=== PATIENT | female | born 1990 | race Asian ===

== ENCOUNTER 2019-11-10 10:54 | Outpatient (CLI) | payer MEDICAID, SELFPAY | END 2019-11-10 21:48 | disposition home or self-care (01) | LOC: MLB 10:54 | PROVIDERS: ATTEND Obstetrics & Gynecology | DX: Z11.59 Encounter for screening for other viral diseases (principal) | CPT/HCPCS: U0003-CS ==

== ENCOUNTER 2020-08-05 10:46 | Emergency (ER) | payer MEDICAID, SELFPAY ==
[~2020-08-05] VITALS: Ht 162.6 cm; Wt 65.8 kg
[2020-08-05 10:50] VITALS: BP 145/69
--- NOTE | 2020-08-05 10:55 | NUR ---
PT AMBULATED TO BED 8, STEADY GAIT.
--- NOTE | 2020-08-05 11:05 | NUR ---
30 Y/F PRESENTS TO ED C C/O SOB S/P RECEIVING PFIZER COVID VACCINE YESTERDAY (1ST DOSE). PT ALSO C/O SINUS PAIN THAT STARTED YESTERDAY. PT REPORTS NASAL CONGESTION, SORE THROAT, HEADACHE 11/30, 3 HOURS S/P VACCINE. PT REPORTS BABY AT HOME HAS SIMILAR SYMPTOMS. PT REPORTS SHE IS , TOOK TYLENOL AT HOME WITH NO RELEIF. LUNGS CLEAR, RR EVEN AND UNALBORED. NO PMH NKDA
--- NOTE | 2020-08-05 11:40 | NUR ---
PT AMBULATED TO BATHROOM, STEADY GAIT.
--- NOTE | 2020-08-05 11:43 | NUR ---
PT REPORTING SOB, AND REQUESTING "SOMETHING TO MAKE HER BREATH EASIER". PT SATTING 100% ON RA. PT PLACED ON 3 LEAD ECG, PULSE OX AND 2L VIA NC FOR COMFORT.
--- NOTE | 2020-08-05 12:25 | NUR ---
DR. HOWARD AT BEDSIDE EVALUATING PT.
[2020-08-05 12:47] VITALS: BP 145/69
--- NOTE | 2020-08-05 12:47 | NUR ---
Patient discharged with v/s stable. Written and verbal after care instructions given and explained. Patient verbalized understanding. Ambulatory with steady gait. All questions addressed prior to discharge. Advised to follow up with PMD.
== END 2020-08-05 12:47 | disposition home or self-care (01) ==
LOC: MED 10:46
DX: J06.9 Acute upper respiratory infection, unspecified (principal)
CPT/HCPCS: 99281

== ENCOUNTER 2020-10-06 08:02 | Emergency (ER) | payer MEDICAID ==
[~2020-10-06] VITALS: Ht 157.5 cm; Wt 65.3 kg
[2020-10-06 08:12] VITALS: BP 117/69
--- NOTE | 2020-10-06 09:11 | NUR ---
30/F presents to ED with c/o facial swelling and itching. Patient states two days ago she had a "stressful situation at work" and states shortly after began feeling face swelling and itchiness radiating down to her neck. Patient denies any difficulty swallowing or shorntess of breath, speaking in clear full sentences. Patient states she took her covid vaccine on 09-22-20 and states "I haven't felt the same since." Face appears swollen bilaterally, no redness or rash noted, denies taking anything at home.
--- NOTE | 2020-10-06 09:36 | NUR ---
Dr. South is evaluating the patient at bedside.
[2020-10-06] MEDS ORDERED: predniSONE 20 MG TAB PO ONE (09:40)
[2020-10-06] MEDS ORDERED: PRED20TA5 PO (09:44)
[2020-10-06] MEDS ORDERED: EPIN1KIT31 IM (09:44)
[2020-10-06] MEDS ORDERED: DIPH25TA53 PO (09:44)
[2020-10-06 10:02] VITALS: BP 117/69
--- NOTE | 2020-10-06 10:03 | NUR ---
Patient discharged with v/s stable. Written and verbal after care instructions given and explained. Patient alert, oriented and verbalized understanding of instructions. Ambulatory with steady gait. All questions addressed prior to discharge. ID band removed. Patient advised to follow up with PMD. Rx of BENADRYL, EPIPEN AND DELTASONE given. Patient educated on indication of medication including possible reaction and side effects. Opportunity to ask questions provided and answered.
== END 2020-10-06 10:03 | disposition home or self-care (01) ==
LOC: MED 08:02
DX: T78.40XA Allergy, unspecified, initial encounter (principal); Z79.899 Other long term (current) drug therapy; X58.XXXA Exposure to other specified factors, initial encounter
CPT/HCPCS: 99283; J7512; Q0163

== ENCOUNTER 2022-05-29 13:52 | Inpatient (IN) | payer MEDICAID ==
[~2022-05-29] VITALS: Ht 157.5 cm; Wt 68.9 kg
[~2022-05-29 13:52] MED LIST: DIPH25TA53 PO; EPIN1KIT31 IM; PRED20TA5 PO
[2022-05-29 13:56] VITALS: BP 85/45
[2022-05-29] MEDS ORDERED: NACL 0.9% 1,000 ML IV ONE (14:00)
--- NOTE | 2022-05-29 14:13 | NUR ---
IV ESTABLISHED TO LEFT AC WITH 20G. BLOOD DRAWN AND SENT TO LAB. EKG DONE. ON GOWN AND MONITOR
[2022-05-29 14:33] LABS: BASOPHILS % (AUTO) 0.2 % (0.0-2.0); EOSINOPHILS # (AUTO) 0.5 K/uL (0-0.4); EOSINOPHILS % (AUTO) 2.9 % (0.0-4.0); HEMATOCRIT 42.3 % (36-48); HEMOGLOBIN 14.5 g/dL (12.0-16.0); LYMPHOCYTES # (AUTO) 2.6 K/uL (2.5-16.5); LYMPHOCYTES % (AUTO) 15.2 % (20.5-51.1); MEAN CORPUSCULAR HEMOGLOBIN 31 pg (27-31); MEAN CORPUSCULAR HGB CONC 34 g/dL (33-37); MEAN CORPUSCULAR VOLUME 89.7 fL (80-94); MONOCYTES # (AUTO) 1.3 K/uL (0.8-1.0); MONOCYTES % (AUTO) 7.5 % (1.7-9.3); NEUTROPHILS # (AUTO) 12.7 K/uL (1.8-7.7); NEUTROPHILS % (AUTO) 74.2 % (42.2-75.2); PLATELET COUNT (AUTO) 312 K/uL (140-450); RED BLOOD CELL COUNT(AUTO) 4.71 MIL/uL (4.20-5.40); RED CELL DISTRIBUTION WIDTH 13.4 % (11.6-13.7); WHITE BLOOD COUNT (AUTO) 17.1 K/uL (4.8-10.8)
[2022-05-29] MEDS ORDERED: ONDANSETRON 4 MG/2 ML VIAL IVP ONE (14:35)
--- NOTE | 2022-05-29 14:45 | NUR ---
32F presents to ED with c/o cough/congestion, SOB, nausea and fatigue x2days. Pt reports taking natural cough medications with no relief. Pt denies fevers, chills or diarrhea. Pt reports intermittent headaches and dizziness. Pt denies pain upon assessment; wheezes auscultated bilaterally in uppers upon inspiration, O2 saturation 95% on RA. Pt changed into gown, placed on bedside monitor, side rails up x1, bed at lowest position.
--- NOTE | 2022-05-29 14:57 | NUR ---
PT AMBULATED WITH STEADY GAIT TO RESTROOM.
[2022-05-29 15:12] LABS: ALBUMIN 4.6 g/dL (3.4-5.0); ANION GAP 15.7 (8-16); CARBON DIOXIDE 26.5 mmol/L (21-32); CREATININE 0.7 mg/dL (0.6-1.3); POTASSIUM 3.2 mmol/L (3.5-5.1); TOTAL BILIRUBIN 0.7 mg/dL (0.0-1.0)
[2022-05-29 15:16] LABS: APPEARANCE,URINE CLEAR (CLEAR); BILIRUBIN,URINE NEGATIVE (NEGATIVE); BLOOD, URINE NEGATIVE (NEGATIVE); COLOR,URINE YELLOW (YELLOW); NITRITE, URINE NEGATIVE (NEGATIVE); PH,URINE 7.5 (5.0-9.0); UGLUCOSE NEGATIVE (NEGATIVE)
[2022-05-29 15:33] LABS: LEUKOCYTE ESTERASE ,URINE 2+ (NEGATIVE)
[2022-05-29 15:34] LABS: RBC,URINE NONE SEEN /HPF (0-5)
[2022-05-29] MEDS ORDERED: ACETAMINOPHEN EXTRA STRENGTH 500 MG TAB PO ONE (15:45)
[2022-05-29] MEDS ORDERED: DOCUSATE SODIUM 100 MG GELCAP PO PRN (16:10)
[2022-05-29] MEDS ORDERED: MAG SULF 2000 MG/WATER PREMIX 50 ML IV PRN (16:10)
[2022-05-29] MEDS ORDERED: POTASSIUM CHLORIDE 10 MEQ TABER PO PRN (16:10)
[2022-05-29] MEDS ORDERED: ONDANSETRON 4 MG/2 ML VIAL IVP PRN (16:10)
[2022-05-29] MEDS ORDERED: ACETAMINOPHEN 325 MG TAB PO PRN (16:10)
[2022-05-29] MEDS ORDERED: LORazepam 2 MG/ML VIAL IVP PRN (16:10)
[2022-05-29] MEDS ORDERED: MORPHINE SULFATE 2 MG/ML SYR IVP PRN (16:10)
[2022-05-29] MEDS ORDERED: ZOLPIDEM 10 MG TAB PO PRN (16:10)
[2022-05-29] MEDS: NACL 0.9% 1,000 ML IV SCH (16:43)
[2022-05-29] MEDS ORDERED: cefTRIAXone 1,000 MG VIAL ONE (16:48)
--- NOTE | 2022-05-29 17:06 | NUR ---
Patient will be admitted to care of Dr. Santillan. Admited to Med/Surg. Will go to room 125A. Belongings list completed. Report to MELLO Anderson.
[2022-05-29 18:13] VITALS: BP 110/73
--- NOTE | 2022-05-29 19:30 | NUR ---
RECEIVED REPORT FROM DAY SHIFT RN FOR CONTINUITY OF CARE. PT IS AWAKE AND ALERT. PT HAS 20 GAUGE ON LEFT AC. PT IS AMBULATORY. GAIT STEADY. DAY SHIFT RN ENDORSED PT POTASSIUM IS LOW 3.2 AND WAS NOT COVERED IN ER OR IN THE SHIFT. WILL COVER. POC DISCUSSED WITH PT. SAFETY MEASURES TAKEN. WILL CONTINUE TO MONITOR THE PT.
--- NOTE | 2022-05-29 20:00 | NUR ---
Patient's Plan of Care was discussed and reviewed with AWA GRAHAM:
--- NOTE | 2022-05-29 20:19 | NUR ---
ENDORSED PT TO LOMBARDI DEVELOPER NURSE AWA FOR CONTINUITY OF CARE. PT IS STABLE.
--- NOTE | 2022-05-29 21:22 | NUR ---
INFORMED DR. TEMPLE PATIENT IS COMPLAINING OF UNABLE TO EXPECTORATE PHLEGM WHEN COUGHING AND IT GIVES HER HEADACHE.
--- NOTE | 2022-05-29 21:30 | NUR ---
DR. TEMPLE ORDERED MUCINEX AND PRN BREATHING TREATMENT OF ALBUTEROL.
[2022-05-29] MEDS ORDERED: guaiFENesin 600 MG TABER PO SCH (21:40)
--- NOTE | 2022-05-29 21:53 | NUR ---
ADMINISTERED MUCINEX PO PER MD ORDER. RT CAME AND GAVE PATIENT A BREATHING TX OF ALBUTEROL.
[2022-05-29] MEDS: ALBUTEROL 0.083% 2.5 MG/3 ML NEBU INH PRN (22:04)
--- NOTE | 2022-05-29 22:16 | NUR ---
CALLED INTO PT ROOM FOR COUGH. PT SPO2 WAS 92% ON RA. GAVE PT A BREATHING TX, EDUCATED ABOUT SPO2 AND OFFERED A NASAL CANNULA TO WHICH THE PT REFUSED. PT SPO2 POST-TX WAS 93%, NO RESPIRATORY DISTRESS INDICATED, WILL CONTINUE TO MONITOR PT.
[2022-05-30] VITALS: BP 112/62
[2022-05-30] MEDS ORDERED: ALBUTEROL 0.083% 2.5 MG/3 ML NEBU INH SCH (01:00)
--- NOTE | 2022-05-30 02:00 | NUR ---
UNABLE TO GET TYLENOL FROM [facility], GOT TWO FROM [facility] BUT PATIENT REFUSED MED, STATED "IT DOES NOT TAKE AWAY THE PAIN.
[2022-05-30] MEDS: NACL 0.9% 1,000 ML IV SCH ×3 (03:58→22:14)
--- NOTE | 2022-05-30 04:00 | NUR ---
SLEEPING COMFORTABLY IN BED, RESPIRATION EVEN AND UNLABORED.
--- NOTE | 2022-05-30 06:00 | NUR ---
STILL SLEEPING COMFORTABLY IN BED, ALL NEEDS ATTENDED.
[2022-05-30 06:04] LABS: BASOPHILS % (AUTO) 0.1 % (0.0-2.0); EOSINOPHILS # (AUTO) 0.5 K/uL (0-0.4); EOSINOPHILS % (AUTO) 3.7 % (0.0-4.0); HEMATOCRIT 38.5 % (36-48); LYMPHOCYTES # (AUTO) 1.3 K/uL (2.5-16.5); LYMPHOCYTES % (AUTO) 9.2 % (20.5-51.1); MEAN CORPUSCULAR HEMOGLOBIN 30 pg (27-31); MEAN CORPUSCULAR HGB CONC 34 g/dL (33-37); MEAN CORPUSCULAR VOLUME 89.7 fL (80-94); MONOCYTES # (AUTO) 0.8 K/uL (0.8-1.0); MONOCYTES % (AUTO) 5.8 % (1.7-9.3); NEUTROPHILS # (AUTO) 11.5 K/uL (1.8-7.7); NEUTROPHILS % (AUTO) 81.2 % (42.2-75.2); PLATELET COUNT (AUTO) 238 K/uL (140-450); RED CELL DISTRIBUTION WIDTH 13.2 % (11.6-13.7); WHITE BLOOD COUNT (AUTO) 14.2 K/uL (4.8-10.8)
[2022-05-30 06:14] LABS: ANION GAP 9.2 (8-16); CARBON DIOXIDE 27.8 mmol/L (21-32); CREATININE 0.5 mg/dL (0.6-1.3)
--- NOTE | 2022-05-30 07:30 | NUR ---
RECIEVED PATOENT FROM EMPLOYEE BENEFITS ATTORNEY NURSE.PATIENT IS AWAKE,ORIENTED.ALL SAFETY MEASURES IN PLACE.WILL CONTINUE TO MONITOR.
[2022-05-30 08:00] VITALS: BP 113/70
[2022-05-30] MEDS ORDERED: guaiFENesin 600 MG TABER PO SCH (09:00)
--- NOTE | 2022-05-30 09:09 | NUR ---
PATIENT HAS BEEN SCREENED AND CATEGORIZED MODERATE NUTRITION RISK. PATIENT WILL BE SEEN WITHIN 3-5 DAYS OF ADMISSION. REVIEWED BY ADITYA CONNELL RD
[2022-05-30] MEDS: guaiFENesin DM 200/20 MG-10 ML 10 ML UDC PO PRN ×2 (09:27→21:08)
[2022-05-30] MEDS: ALBUTEROL 0.083% 2.5 MG/3 ML NEBU INH PRN (10:49)
[2022-05-30] MEDS: KETOROLAC 30 MG/ML VIAL IVP PRN (15:17)
[2022-05-30 16:00] VITALS: BP 104/69
--- NOTE | 2022-05-30 19:30 | NUR ---
RECEIVED PT FROM MORNING SHIFT NURSE. PT IS LYING ON THE BED WHILE WATCHING TV. PT IS AOX4, BEDBOUND, ABLE TO VERBALIZE NEEDS AND ABLE TO FOLLOW COMMANDS. PT IS ON ROOM AIR AND ON REGULAR DIET. PT HAS IV ON LEFT AC GAUGE 20 RUNNING WITH NS AT 100. PT SKIN IS INTACT. PT DENIES PAIN AND NO S/S OF RESPIRATORY DISTRESS. ALL SAFETY MEASURES IMPLEMENTED. BED WHEELS ON LOCK, BED IN LOW POSITION AND CALL LIGHT WITHIN REACH.
[2022-05-30] MEDS: methylPREDNISolone SS 125 MG/2 ML VIAL IVP SCH (21:07)
--- NOTE | 2022-05-30 21:08 | NUR ---
SCHEDULED AND PRESCRIBED MEDICATION WAS GIVEN TO PT PER MD ORDER. PT WAS ALSO GIVEN PRN COUGH MEDICATION PER PT REQUESTED. ALL SAFETY MEASURES IMPLEMENTED. BED WHEELS ON LOCK, BED IN LOW POSITION AND CALL LIGHT WITHIN REACH.
[2022-05-31] VITALS: BP 112/59
--- NOTE | 2022-05-31 | NUR ---
PT IS SLEEPING. CHEST RISE AND FALL SYMMETRICALLY NOTED. RESPIRATION IS EVEN AND UNLABORED. ALL SAFETY MEASURES IMPLEMENTED. BED IN LOW POSITION, BED WHEELS ON LOCK AND CALL LIGHT WITHIN REACH.
--- NOTE | 2022-05-31 02:00 | NUR ---
CHECKED THE PT STILL SLEEPING. CHEST RISE AND FALL SYMMETRICALLY NOTED. RESPIRATION IS EVEN AND UNLABORED. ALL SAFETY MEASURES IMPLEMENTED. BED IN LOW POSITION, BED WHEELS ON LOCK AND CALL LIGHT WITHIN REACH.
--- NOTE | 2022-05-31 04:00 | NUR ---
ASSISTED PT TO GO TO BATHROOM. NO COMPLAIN OF PAIN AT THIS TIME. NO S/S OF RESPIRATORY DISTRESS NOTED. ALL SAFETY MEASURES IMPLEMENTED. BED IN LOW POSITION, BED WHEELS ON LOCK AND CALL LIGHT WITHIN REACH.
[2022-05-31 06:00] LABS: BASOPHILS % (AUTO) 0.1 % (0.0-2.0); EOSINOPHILS % (AUTO) 0.1 % (0.0-4.0); HEMATOCRIT 39.8 % (36-48); HEMOGLOBIN 13.6 g/dL (12.0-16.0); LYMPHOCYTES # (AUTO) 0.9 K/uL (2.5-16.5); LYMPHOCYTES % (AUTO) 10.8 % (20.5-51.1); MEAN CORPUSCULAR HEMOGLOBIN 31 pg (27-31); MEAN CORPUSCULAR HGB CONC 34 g/dL (33-37); MEAN CORPUSCULAR VOLUME 90.3 fL (80-94); MONOCYTES # (AUTO) 0.1 K/uL (0.8-1.0); MONOCYTES % (AUTO) 1.2 % (1.7-9.3); NEUTROPHILS # (AUTO) 7.1 K/uL (1.8-7.7); NEUTROPHILS % (AUTO) 87.8 % (42.2-75.2); PLATELET COUNT (AUTO) 243 K/uL (140-450); RED BLOOD CELL COUNT(AUTO) 4.41 MIL/uL (4.20-5.40); RED CELL DISTRIBUTION WIDTH 13.3 % (11.6-13.7)
[2022-05-31 06:04] LABS: ANION GAP 13.2 (8-16); CARBON DIOXIDE 25.9 mmol/L (21-32); CREATININE 0.5 mg/dL (0.6-1.3); POTASSIUM 4.1 mmol/L (3.5-5.1)
--- NOTE | 2022-05-31 07:01 | NUR ---
PT IS STABLE. ENDORSED PT TO MORNING SHIFT NURSE FOR CONTINUITY OF CARE.
--- NOTE | 2022-05-31 07:10 | NUR ---
RECEIVED REPORT FROM NIGHT NURSE MARY FOR CONTINUITY OF CARE. INITIAL ASSESSMENT DONE. IVF INFUSING WELL. CALL LIGHT KEPT WITHIN REACH. WILL CONTINUE TO MONITOR.
[2022-05-31 08:00] VITALS: BP 115/71
[2022-05-31] MEDS: NACL 0.9% 1,000 ML IV SCH (08:10)
[2022-05-31] MEDS ORDERED: NITR100C7 PO (09:23)
[2022-05-31] MEDS ORDERED: FLUT1DSK2 IH (09:23)
[2022-05-31] MEDS ORDERED: PRED20TA5 PO (09:25)
[2022-05-31] MEDS: KETOROLAC 30 MG/ML VIAL IVP PRN (09:53)
[2022-05-31] MEDS: methylPREDNISolone SS 125 MG/2 ML VIAL IVP SCH (09:53)
--- NOTE | 2022-05-31 09:56 | NUR ---
SCHEDULED MEDICATIONS DUE GIVEN. COMPLAINS OF PAIN, TORADOL IVP PRN GIVEN PER MD ORDERS. WILL CONTINUE TO MONITOR.
--- NOTE | 2022-05-31 10:17 | NUR ---
MAGNESIUM IV WASTED, NOT GIVEN. PATIENT DISCHARGED, HAS TO LEAVE SOON. DOES NOT WANT TO WAIT 2 HRS FOR IV MAG TO FINISH. WILL CONTACT MD FOR POSSIBLE CHANGE TO PO MAG.
--- NOTE | 2022-05-31 10:20 | NUR ---
NOTIFIED DR. TEMPLE PT MANGESIUM 1.7 REFUSED PRN MAGNESIUM IV D/T PT WILL BE DISCHARGE. RECEIVED NEW ORDER MAGNESIUM 400 MG PO ONCE. NOTED AND CARRIED OUT.
[2022-05-31] MEDS ORDERED: MAGNESIUM OXIDE 400 MG TAB PO SCH (10:27)
--- NOTE | 2022-05-31 10:43 | NUR ---
MAGNESIUM 400 MG PO ONCE GIVEN. TOLERATING WELL.
--- NOTE | 2022-05-31 11:05 | NUR ---
PATIENT LEFT, DISCHARGE TO HOME, ACCOMPANIED BY PER PRIVATE CAR. IV AND ID BAND REMOVED. DISCHARGE PAPER WORKS DISCUSS AND SIGN BY PT. SKIN IS INTACT. ALL PERSONAL BELONGINGS TAKEN. REMAINS STABLE.
== END 2022-05-31 11:05 | disposition home or self-care (01) | DRG 720 ==
LOC: MED 13:52 → MMU 16:09
PROVIDERS: ADMIT Family Medicine; ATTEND Family Medicine
DX: A41.9 Sepsis, unspecified organism (principal); E83.51 Hypocalcemia; J45.901 Unspecified asthma with (acute) exacerbation; Z20.822 Contact with and (suspected) exposure to COVID-19; N39.0 Urinary tract infection, site not specified; J20.8 Acute bronchitis due to other specified organisms
CPT/HCPCS: 36415; 36600; 71045; 80048; 80053; 81001; 82550; 82553; 82803; 83605; 83735; 83880; 84484; 85025; 85379; 85610; 85730; 87040; 87081; 87086; 94640; 96365; 96375; 99291; J0696; J1885; J2270; J2405; J2930; J3475; J7060; J7613

== ENCOUNTER 2022-06-27 09:30 | Emergency (ER) | payer MEDICAID ==
[~2022-06-27] VITALS: Ht 158.8 cm; Wt 68.0 kg
[~2022-06-27 09:30] MED LIST changes: -DIPH25TA53 PO; +FLUT1DSK2 IH; +NITR100C7 PO
[2022-06-27 09:32] VITALS: BP 108/65
--- NOTE | 2022-06-27 09:37 | NUR ---
AMBULATED TO BED 8 WITH STEADY GAIT
--- NOTE | 2022-06-27 09:44 | NUR ---
DR VALDEZ AT BEDSIDE FOR EVAL
--- NOTE | 2022-06-27 09:47 | NUR ---
32 Y/O FEMALE BIB SELF C/O SORE THROAT, BILATERAL EARS PAIN AND PRESSURE, QUIGLEY X 5 DAYS. DENIES ANY HEARING LOSS, DISCHARGE, TINNITUS, COUGH, FEVERS, CHILLS, SOB. THROAT APPEARS REDDENED, NO EXUDATE OR SPOTS NOTED. PMH: ASTHMA
--- NOTE | 2022-06-27 09:47 | NUR ---
PT AMBULATED TO THE BATHROOM
--- NOTE | 2022-06-27 09:53 | NUR ---
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
[2022-06-27] MEDS ORDERED: KETOROLAC 15 MG/ML VIAL IM ONE (10:10)
[2022-06-27] MEDS ORDERED: DEXAMETHASONE 4 MG/ML VIAL PO ONE (10:10)
[2022-06-27 10:25] VITALS: BP 107/66
[2022-06-27] MEDS ORDERED: AMOX1TAB8 PO (11:41)
--- NOTE | 2022-06-27 11:54 | NUR ---
Patient discharged with v/s stable. Written and verbal after care instructions ABOUT OTITIS MEDIS AND UPPER RESPIRATORY INFECTION given and explained. Patient alert, oriented and verbalized understanding of instructions. Ambulatory with steady gait. All questions addressed prior to discharge. ID band removed. Patient advised to follow up with PMD. Rx of AMOX-CLAV [id number] given. Patient educated on indication of medication including possible reaction and side effects. Opportunity to ask questions provided and answered.
== END 2022-06-27 11:54 | disposition home or self-care (01) ==
LOC: MED 09:30
DX: H66.93 Otitis media, unspecified, bilateral (principal); J06.9 Acute upper respiratory infection, unspecified; Z79.899 Other long term (current) drug therapy
CPT/HCPCS: 81025; 87081; 96372; 99283; J1100; J1885

== ENCOUNTER 2022-09-23 13:52 | Emergency (ER) | payer MEDICAID ==
[~2022-09-23] VITALS: Ht 162.6 cm; Wt 68.0 kg
[~2022-09-23 13:52] MED LIST changes: +AMOX1TAB8 PO
[2022-09-23 14:04] VITALS: BP 120/71
[2022-09-23] MEDS ORDERED: SUD30 PO (14:12)
[2022-09-23] MEDS ORDERED: FLONAS NS (14:12)
--- NOTE | 2022-09-23 14:25 | NUR ---
Pt bibs for progressing congestion for several months. Pt states it is worse when sleeping and has taken otc medications. Mid level provider has seen pt and gave order for dc. Pt a/o x 4, vss, no ss of acute distress, breathing equal and unlabored, speech clear. All questions answered by provider. ACI given and reviewed with pt. Pt verbalized understanding.
== END 2022-09-23 14:25 | disposition home or self-care (01) ==
LOC: MED 13:52
DX: R09.89 Other specified symptoms and signs involving the circulatory and respiratory systems (principal); J45.909 Unspecified asthma, uncomplicated; Z79.899 Other long term (current) drug therapy
CPT/HCPCS: 99283